=== PATIENT | male | born 1995 | race African-American/Black ===

== ENCOUNTER 2017-03-27 13:44 | Inpatient (IN) | payer OTHER ==
[~2017-03-27] VITALS: Ht 172.7 cm; Wt 58.0 kg
[2017-03-27 15:05] LABS: MEAN CORPUSCULAR HEMOGLOBIN 30.5 pg (27.0-33.0); MEAN CORPUSCULAR HGB CONC 32.7 g/dl (32.0-36.5); MEAN CORPUSCULAR VOLUME 93.5 fl (80.0-96.0); PLATELET COUNT, AUTOMATED 204 10^3/uL (150-450); RED CELL DISTRIBUTION WIDTH 11.9 % (11.5-14.5); WHITE BLOOD COUNT 4.6 10^3/uL (4.0-10.0)
[2017-03-27 15:32] LABS: METHADONE URINE NEGATIVE (NEGATIVE)
[2017-03-27 15:41] LABS: ALBUMIN 4.1 GM/DL (3.2-5.2); ALBUMIN/GLOBULIN RATIO 1.17 (1.00-1.93); ALKALINE PHOSPHATASE 73 U/L (45-117); ALT/SGPT 25 U/L (12-78); ANION GAP 7 MEQ/L (8-16); AST/SGOT 27 U/L (7-37); BILIRUBIN,DIRECT 0.1 MG/DL (0.0-0.2); BILIRUBIN,TOTAL 0.3 MG/DL (0.2-1.0); BLOOD UREA NITROGEN 14 MG/DL (7-18); CALCIUM LEVEL 9.2 MG/DL (8.5-10.1); CARBON DIOXIDE LEVEL 30 MEQ/L (21-32); CHLORIDE LEVEL 104 MEQ/L (98-107); CREATININE FOR GFR 0.91 MG/DL (0.70-1.30); GLOMERULAR FILTRATION RATE > 60.0 (>60); GLUCOSE, FASTING 86 MG/DL (70-105); POTASSIUM SERUM 4.3 MEQ/L (3.5-5.1); SODIUM LEVEL 141 MEQ/L (136-145); TOTAL PROTEIN 7.6 GM/DL (6.4-8.2)
[2017-03-27] MEDS ORDERED: ACETAMINOPHEN TAB 650MG DOSE (2X325MG) PO PRN (16:30)
[2017-03-27] MEDS ORDERED: MAALOX 30 ML SUSP *UDC PO PRN (16:30)
[2017-03-27] MEDS ORDERED: MOM 30ML SUSPENSION UDC PO PRN (16:30)
[2017-03-27 18:32] VITALS: BP 121/64
[2017-03-28 06:49] VITALS: BP 112/62
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
--- NOTE | 2017-03-28 14:01 | ECGEPIP ---
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
[2017-03-28 18:00] VITALS: BP 129/65
[2017-03-29 06:27] VITALS: BP 105/52
[2017-03-29 18:00] VITALS: BP 124/66
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
[2017-03-29] MEDS: risperiDONE 0.5 MG TAB PO SCH (21:00)
[2017-03-30 06:47] VITALS: BP 116/55
[2017-03-30] MEDS: VENLAFAXINE 37.5 MG TAB PO SCH (09:00)
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
[2017-03-30] MEDS: risperiDONE 0.5 MG TAB PO SCH (21:00)
[2017-03-30 22:11] VITALS: BP 125/60
[2017-03-31 06:16] VITALS: BP 107/55
[2017-03-31] MEDS: VENLAFAXINE 37.5 MG TAB PO SCH (09:00)
[2017-03-31 18:00] VITALS: BP 128/60
[2017-03-31] MEDS: risperiDONE 0.5 MG TAB PO SCH (21:00)
[2017-04-01 07:00] VITALS: BP 113/57
[2017-04-01] MEDS: SERTRALINE HCL 50 MG TAB PO SCH (09:00)
[2017-04-01] MEDS: VENLAFAXINE 25 MG TAB PO SCH (09:00)
[2017-04-01 18:00] VITALS: BP 119/57
[2017-04-01] MEDS: risperiDONE 0.5 MG TAB PO SCH (21:00)
[2017-04-02 06:42] VITALS: BP 117/54
[2017-04-02] MEDS: VENLAFAXINE 25 MG TAB PO SCH (08:23)
[2017-04-02] MEDS: SERTRALINE HCL 50 MG TAB PO SCH (08:23)
[2017-04-02 18:00] VITALS: BP 112/80
[2017-04-02] MEDS: risperiDONE 0.5 MG TAB PO SCH (21:00)
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
[2017-04-03 07:00] VITALS: BP 111/55
[2017-04-03] MEDS: SERTRALINE HCL 50 MG TAB PO SCH (09:00)
[2017-04-03] MEDS: VENLAFAXINE 25 MG TAB PO SCH (09:00)
[2017-04-03] MEDS ORDERED: RISP0.5T21 PO (10:19)
[2017-04-03] MEDS ORDERED: SERT50TA PO (10:19)
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
== END 2017-04-03 13:21 | disposition home or self-care (01) | DRG 885 ==
LOC: M ED 13:44 → EDBD 13:44 → M ED INP 16:16 → M PSY 18:30
PROVIDERS: ADMIT Psychiatry & Neurology Psychiatry; ATTEND Psychiatry & Neurology Psychiatry
DX: F32.3 Major depressive disorder, single episode, severe with psychotic features (principal); F29 Unspecified psychosis not due to a substance or known physiological condition; Z62.810 Personal history of physical and sexual abuse in childhood